=== PATIENT | male | born 1935 | race Caucasian/White ===

== ENCOUNTER 2017-08-26 23:15 | Emergency (ER) | payer MEDICARE, BC ==
[2017-08-26] MEDS ORDERED: HEPARIN SODIUM,PORCINE 5,000 UNITS/ML VIAL IV ONE (23:21)
[2017-08-26] MEDS ORDERED: NITROGLYCERIN IN 5 % DEXTROSE 50 MG/250 ML INFUS..BTL IV PRN (23:24)
[2017-08-26 23:29] LABS: Hematocrit 41.9 % (42.0-52.0); Hemoglobin 14.5 gm/dL (13.5-18.0); Mean Cell Volume 88.2 fl (78-100); Mean Corpuscular Hemoglobin 30.5 pg (27-31); Mean Corpuscular Hgb Conc 34.6 g/dl (32-36); Mean Platelet Volume 11.4 fl (6.0-9.5); Neutrophil # 4.7 K/mm3 (1.3-6.0); Neutrophil % 50.7 % (42-75.0); Platelet Count 184 K/mm3 (150-450); Red Blood Count 4.75 M/mm3 (4.7-6.0); Red Cell Distribution Width 13.4 % (11.5-14.0); White Blood Count 9.2 K/mm3 (4.0-10.5)
[2017-08-26 23:30] VITALS: BP 157/93
--- NOTE | 2017-08-26 23:43 | ERNOTE ---
Chest Pain/Cardiac HPI Date of Service: 08/26/17 Chief Complaint: Chest Pain Time Seen by Provider: 08/26/17 23:28 Source: patient, EMS Exam Limitations: no limitations Immunizations: IMMUNIZATION HX Immunizations Up to Date Yes History of Influenza Vaccine No Allergies/Adverse Reactions: Allergies No Known Allergies Allergy (Verified 08/26/17 23:23) Home Medications: HOME MEDICATIONS Aspirin [Aspirin Chewable] 81 mg PO DAILY 08/26/17 [Last Taken Unknown] Narrative: 82 year old that was in bed when he had a sudden onset of substernal chest pain (6/10), that does not radiate; for the last 45 minutes. In transit he was given 4 mg of Morphine sulphate and 3 NTG tabs without relief of the pain. He has been non complaint with his medications. s/p cardiac stent placed 20 years ago, but has not had another cardiac catherterization since then. Denies having a cardiac stress test in many years. Started on a NTG drip in the ED, which decreased the pain to a 3/10. Date (Duration): 08/26/17 Time (Timing): 23:32 Timing: constant Severity/Quality: moderate Location: substernal Chest Pain Radiation: no radiation Activities at Onset: rest Modifying Factors - Improves: Present: nothing Modifying Factors - Worsens: Present: nothing Nitro Today/Relief: 0.4 mg x 3 Aspirin Treatment Today: 81 mg x 4 Associated Symptoms: Present: denies symptoms Review of Systems - Review of Systems Constitutional: Present: See HPI EYE: Present: no symptoms reported ENT: Present: no symptoms reported Respiratory: Present: no symptoms reported Cardiology: Present: See HPI Gastrointestinal/Abdominal: Present: no symptoms reported Genitourinary: Present: no symptoms reported Musculoskeletal: Present: no symptoms reported Skin: Present: See HPI Neurological: Present: no symptoms reported Endocrine: Present: no symptoms reported Hematologic/Lymphatic: Present: no symptoms reported Psych: Present: no symptoms reported - Patient's Past Medical History Patient History - Cardiac/Respiratory: Coronary Heart Disease, Hyperlipidemia Patient History - Cancer: No Hx of Cancer Patient History - Surgical Procedures: No surgical history Patient History - Other: None - Social History Living Situations: home Psych History: No pertinent hx Smoking Status: Never smoker Alcohol Use: none Drug Use: none - Immunizations Immunizations Up to Date: Yes History of Influenza Vaccine: No Physical Exam - Physical Exam Narrative: Moderately diaphoretic General Appearance: Present: mild distress Head Exam: Present: normal inspection Eye Exam: Normal inspection: bilateral Ears, Nose, Throat: Present: normal ENT inspection Neck: Present: normal inspection Respiratory: Present: no respiratory distress Cardiovascular/Chest: Present: regular rate, rhythm Gastrointestinal/Abdominal: Present: nontender Back Exam: Present: normal inspection Extremity Exam: Present: normal inspection Neurological Exam: Present: alert, oriented, normal mood/affect Skin Exam: Present: diaphoresis ED Progress - Vital Signs Patient's Vital Signs:: I have reviewed the patient's vital signs. Vital Signs: Vital Signs 08/26/17 23:17 Temperature 36 C L Pulse Rate 89 Respiratory 18 Rate Blood Pressure 147/94 O2 Sat by Pulse 95 Oximetry - EKG EKG: NSR EKG read: Interp. by me EKG Comments: anteroseptal DE, rate 80 - Progress/Reassessment Chief Complaint: Chest Pain Progress:: Improved Progress Note-Subjective: 08/26/17 23:27 The case was discussed with Dr. Bauer (cardiology) and notified of the STEMI. NTG drip and Heparin started. Departure Clinical Impression: Acute myocardial infarction - Departure Disposition: [facility] Condition: Serious
[2017-08-26 23:45] LABS: Anion Gap 18.3 mmol/L (6.8-13.8); BUN/Creatinine Ratio 14.5 (9.0-21.6); Calcium * 8.7 mg/dL (7.9-10.9); Carbon Dioxide 18.8 mmol/L (24-32.6); Estimated Creat Clear 38.5; Potassium 3.1 mmol/L (3.4-4.6)
[2017-08-26 23:46] LABS: Troponin I 0.154 ng/ml (0.00-0.10)
== END 2017-08-26 23:35 | disposition short-term general hospital (02) ==
LOC: ER 23:15
DX: I21.3 ST elevation (STEMI) myocardial infarction of unspecified site (principal); I25.119 Atherosclerotic heart disease of native coronary artery with unspecified angina pectoris; E78.5 Hyperlipidemia, unspecified